=== PATIENT | female | born 1955 | race Caucasian/White ===

== ENCOUNTER 2016-11-18 19:54 | Emergency (ER) | payer BC | END 2016-11-18 22:38 | disposition home or self-care (01) | DX: S09.90XA Unspecified injury of head, initial encounter (principal); W01.0XXA Fall on same level from slipping, tripping and stumbling without subsequent striking against object, initial encounter; Y92.019 Unspecified place in single-family (private) house as the place of occurrence of the external cause; F10.129 Alcohol abuse with intoxication, unspecified ==

== ENCOUNTER 2018-05-05 02:22 | Emergency (ER) | payer SELFPAY ==
[2018-05-05] MEDS ORDERED: LIDOCAINE-EPINEPH-TETRACAINE 3 ML SYRINGE TOP STA (02:58)
[2018-05-05] MEDS ORDERED: BUFFERED LIDOCAINE 10 ML SYRINGE SUBQ STA (02:58)
--- NOTE | 2018-05-05 02:59 | ED Physician Documentation ---
PD HPI HEAD INJURY - Stated complaint Stated Complaint: HEAD LACERATION - Chief complaint Chief Complaint: Laceration - History obtained from History obtained from: Patient, Family - History of Present Illness Mechanism of head injury: Fell, Blow, Laceration Where head injury occurred: Home Timing - onset: Today Severity Comments: moderate Location of injury: Back Quality of pain: Throbbing, Aching Associated symptoms: Other (Intoxication) Symptoms improve with: Nothing Contributing factors: Intoxicated. No: Anticoagulated Similar symptoms before: Has not had sx before Recently seen: Not recently seen - Additional information Additional information: 62-year-old female presents the emergency department for evaluation of head injury which occurred just prior to arrival. The patient fell striking the back of her head with laceration. No reports of numbness tingling or motor weakness or injury to her torso or upper or lower extremities Review of Systems Constitutional: denies: Fever, Chills Eyes: denies: Loss of vision Ears: denies: Ear pain Cardiac: denies: Chest pain / pressure GI: denies: Abdominal Pain Skin: reports: Laceration (s) Neurologic: reports: Head injury PD PAST MEDICAL HISTORY - Past Medical History Past Medical History: No - Past Surgical History Past Surgical History: No - Present Medications Home Medications: Ambulatory Orders Medication Instructions Recorded Confirmed Cetirizine [ZyrTEC] 10 mg PO PRN PRN 11/18/16 11/18/16 - Allergies Allergies/Adverse Reactions: Allergies Allergy/AdvReac Type Severity Reaction Status Date / Time No Known Drug Allergies Allergy Verified 05/05/18 02:30 - Social History Does the pt smoke?: No Smoking Status: Never smoker Does the pt drink ETOH?: Yes Does the pt have substance abuse?: No - Immunizations Immunizations are current?: Yes PD ED PE NORMAL - General General: Alert and oriented X 3, No acute distress - HEENT HEENT: PERRL, EOMI, Ears normal. No: Atraumatic - Neck Neck: Other (The Nexus criteria is not applicable to this patient secondary to intoxication.) - Derm Derm: Normal color, Other (1 cm scalp laceration) - Extremities Extremities: No deformity, Normal ROM s pain - Neuro Neuro: Alert and oriented X 3, No motor deficit, Normal speech - Psych Psych: Normal affect Results - Vitals Vitals: Vital Signs - 24 hr 05/05/18 02:24 Temperature 36.3 C L Heart Rate 89 Respiratory 18 Rate Blood Pressure 105/75 O2 Saturation 95 Oxygen O2 Source Room air - Rads (name of study) CT head/neck Radiology: Final report received (IMPRESSION: No CT evidence of acute intracranial process.IMPRESSION: No evidence of cervical spine fracture. ) Procedures - Laceration (location) Scalp Wound type: Linear Neurovascular status: Vascular intact Anesthesia: LET, Lidocaine 1% Wound Preparation: Betadine, Irrigated copiously NS Skin layer closure: Chang, Sutures - enter # (3) Other: Patient tolerated well, No complications, Neurovascular intact, Tetanus UTD Complexity: Simple PD MEDICAL DECISION MAKING - ED course ED course: The patient has no evidence of skull fracture or intracranial hemorrhage and a CT scan was done to rule out cervical spine fracture since the patient was intoxicated. The patient's laceration was closed using chang. The patient appears appropriate for discharge and outpatient management. I discussed w arning signs and recommended returning to the emergency department immediately for worsening or any concerns. - Sepsis Event Vital Signs: Vital Signs - 24 hr 05/05/18 02:24 Temperature 36.3 C L Heart Rate 89 Respiratory 18 Rate Blood Pressure 105/75 O2 Saturation 95 Oxygen O2 Source Room air Departure - Departure Disposition: 01 Home, Self Care Clinical Impression: Closed head injury Qualifiers: Encounter type: initial encounter Qualified Code(s): S09.90XA - Unspecified injury of head, initial encounter Scalp laceration Qualifiers: Encounter type: initial encounter Qualified Code(s): S01.01XA - Laceration with out foreign body of scalp, initial encounter Fall Qualifiers: Encounter type: initial encounter Qualified Code(s): W19.XXXA - Unspecified fall, initial encounter Condition: Good Instructions: ED Head Injury Closed Ch, ED Laceration All Comments: Please have your Chang removed in 7-10 days. Please return to the emergency department immediately for any worsening or any concerns.
--- NOTE | 2018-05-05 03:50 | CT Report ---
Reason: head injury, +ETOH Procedure Date: 05/05/2018 Accession Number: [id number] / [id number] Procedure: CT - Head W/O CPT Code: FULL RESULT: EXAM: CT HEAD EXAM DATE: 05/05/2018 03:27 AM. CLINICAL HISTORY: Head injury, +ETOH. COMPARISON: Head CT 11/18/2016. TECHNIQUE: Multiaxial CT images were obtained from the foramen magnum to the vertex. Reformats: Coronal. IV contrast: None. In accordance with CT protocol optimization, one or more of the following dose reduction techniques were utilized for this exam: automated exposure control, adjustment of mA and/or KV based on patient size, or use of iterative reconstructive technique. FINDINGS: Parenchyma: No intraparenchymal hemorrhage. No evidence of mass, midline shift, or CT findings of infarction. There are areas of low density involving white matter bilateral cerebral hemispheres. Extraaxial Spaces: Mild prominence of sulci and ventricles. No mass-effect. No midline shift. No subdural or epidural collections identified. Ventricles: Normal in size and position. Sinuses and Orbits: Imaged paranasal sinuses, orbits, and mastoids show no significant abnormality. Bones: No evidence of fracture or calvarial defect. Other: There is a left occipital scalp hematoma.. IMPRESSION: No CT evidence of acute intracranial process. RADIA
--- NOTE | 2018-05-05 03:57 | CT Report ---
Reason: head injury, +ETOH Procedure Date: 05/05/2018 Accession Number: [id number] / [id number] Procedure: CT - Cervical Spine W/O CPT Code: FULL RESULT: EXAM: CT CERVICAL SPINE WITHOUT CONTRAST DATE: 05/05/2018 03:27 AM. HISTORY: Head injury, +ETOH. COMPARISONS: None. TECHNIQUE: Thin-section axial images were acquired of the cervical spine without contrast. Post-processing: Coronal and sagittal reformats. Other: None. In accordance with CT protocol optimization, one or more of the following dose reduction techniques were utilized for this exam: automated exposure control, adjustment of mA and/or KV based on patient size, or use of iterative reconstructive technique. FINDINGS: Alignment: No scoliosis or spondylolisthesis. Bones: No fracture or bone lesion. Interspace Levels/Facets: C1-C2: Unremarkable. C2-C3: There is mild left facet hypertrophy. C3-C4: There is left facet hypertrophy and fusion. C4-C5: Mild bilateral facet DJD. C5-C6: Disk height loss. Mild endplate osteophytosis. Mild right facet hypertrophy. Mild left neural foraminal narrowing. C6-C7: Disk height loss and endplate degenerative changes. Uncovertebral osteophytosis with moderate left neural foraminal narrowing. C7-T1: Unremarkable. Musculature: Normal. No fatty atrophy. Other: The paravertebral and prevertebral soft tissues are unremarkable. The lung apices are clear. IMPRESSION: No evidence of cervical spine fracture. RADIA
[2018-05-05 04:17] VITALS: BP 115/64
== END 2018-05-05 04:17 | disposition home or self-care (01) ==
LOC: ED 02:22
DX: S01.01XA Laceration without foreign body of scalp, initial encounter (principal); W19.XXXA Unspecified fall, initial encounter; W22.8XXA Striking against or struck by other objects, initial encounter; Y92.009 Unspecified place in unspecified non-institutional (private) residence as the place of occurrence of the external cause
CPT/HCPCS: 12001; 70450; 72125; 99282; 99283

== ENCOUNTER 2020-06-30 20:26 | Outpatient (CLI) | payer BC | END 2020-06-30 20:27 | disposition critical access hospital (66) | LOC: EMS 20:26 | PROVIDERS: ATTEND Surgery | DX: S89.92XA Unspecified injury of left lower leg, initial encounter (principal); W10.9XXA Fall (on) (from) unspecified stairs and steps, initial encounter; Y93.89 Activity, other specified; Y92.009 Unspecified place in unspecified non-institutional (private) residence as the place of occurrence of the external cause | CPT/HCPCS: A0425; A0429 ==

== ENCOUNTER 2020-06-30 20:50 | Emergency (ER) | payer BC ==
--- NOTE | 2020-06-30 21:02 | ED Physician Documentation ---
History of Present Illness - Stated complaint Stated Complaint: GLF, LEFT KNEE INJURY - History obtained from History obtained from: Patient - Additonal information Additional information: pt presented w/ left knee pain after a fall. she was going up the stairs and tripped and landed directly on the edge of the concrete stair onto left patella. She felt the patella at that time and felt it was in two pieces. minimal pain at rest presently. no other injuries during the fall. PD PAST MEDICAL HISTORY - Past Surgical History Past Surgical History: No - Present Medications Home Medications: Ambulatory Orders Medication Instructions Recorded Confirmed Cetirizine [ZyrTEC] 10 mg PO PRN PRN 11/18/16 11/18/16 - Allergies Allergies/Adverse Reactions: Allergies Allergy/AdvReac Type Severity Reaction Status Date / Time No Known Drug Allergies Allergy Verified 06/30/20 20:59 - Social History Does the pt smoke?: No Smoking Status: Never smoker Does the pt drink ETOH?: Yes Does the pt have substance abuse?: No - Immunizations Immunizations are current?: Yes PD ED PE NORMAL - Vitals Vital signs reviewed: Yes - General General: Alert and oriented X 3, No acute distress, Well developed/nourished - HEENT HEENT: Atraumatic, Moist mucous membranes - Neck Neck: Supple, no meningeal sign, No bony TTP - Cardiac Cardiac: RRR, No murmur, No gallop, No rub, Strong equal pulses - Respiratory Respiratory: No respiratory distress, Clear bilaterally - Abdomen Abdomen: Normal bowel sounds, Soft, Non tender, Non distended - Derm Derm: Normal color, Warm and dry, No rash, Other (Patella contusion but skin intact) - Extremities Extremities: Other (left knee contusion and generalized swelling, tender, palpable fracture of patella. no distal femur or tibial ttp) - Neuro Neuro: Alert and oriented X 3 Eye Opening: Spontaneous Motor: Obeys Commands Verbal: Oriented GCS Score: 15 - Psych Psych: Normal mood, Normal affect - Free text exam Free text exam: 2+ pedal pulses bilat with brisk cap refill, normal sensation distal to the injury. Results - Vitals Vitals: Vital Signs - 24 hr 06/30/20 06/30/20 06/30/20 20:57 21:14 21:17 Temperature 37.5 C 37.5 C Heart Rate 99 99 76 Respiratory 8 L 18 Rate Blood Pressure 154/90 H 154/90 H 159/68 H O2 Saturation 98 98 98 Oxygen O2 Source Room air PD MEDICAL DECISION MAKING - ED course Complexity details: reviewed results, d/w patient, d/w [facility] consultant ED course: Pt presented after a fall onto the left knee. She sustained a fracture of the patella with 1.7cm of space between the fracture fragments. We placed her in a long leg knee immobilizer. I spoke w/ Dr. Villegas who has kindly agreed to see pt at 0930am tomorrow in his clinic to determine next steps. Pt advised to remain NPO after midnight for possible surgical repair tomorrow. She was advised to remain NWB and was provided crutches. She declined pain meds here but was sent home with #4 tablets for prn use until she follows up with ortho. Departure - Departure Disposition: 01 Home, Self Care Clinical Impression: Patella fracture Qualifiers: Encounter type: initial encounter Fracture type: closed Fracture morphology: unspecified fracture morphology Fracture alignment: displaced Laterality: left Qualified Code(s): S82.002A - Unspecified fracture of left patella, initial encounter for closed fracture Condition: Good Instructions: ED Fx Patella Follow-Up: Vidal Villegas MD [Provider Admit Priv/Credential] - Comments: Please follow up with Dr. Villegas (Orthopedic surgeon) tomorrow morning at 0930am. Please stay NPO (nothing by mouth) after midnight in the event that he can do a surgical repair tomorrow. Please remain non-weight bearing and use the knee immobilizer at all times until you are seen by the orthopedic surgeon. The address to Dr. Villegas's office is: [address] [place] [id number]
[2020-06-30 21:18] VITALS: BP 159/68
[2020-06-30] MEDS ORDERED: HYDROcod/ACET 5/325 Prepack 4 PO STA (22:09)
--- NOTE | 2020-07-01 07:27 | XRAY Report ---
PROCEDURE: Knee 3 View LT INDICATIONS: concern for patella fx TECHNIQUE: 3 views of the left knee(s) were acquired. COMPARISON: None. FINDINGS: Bones: Horizontally oriented fracture through the mid aspect of the patella. There is approximately 1 .7 cm distraction of the superior and inferior fracture fragments. No suspicious bony lesions. Soft tissues: Small joint effusion. No suspicious soft tissue calcifications. Anterior patellar soft tissue swelling. IMPRESSION: Distracted patella fracture. Reviewed by: Naomi Glez MD, PhD on 07/01/2020 7:26 AM PST Approved by: Naomi Glez MD, PhD on 07/01/2020 7:26 AM PST Station ID: [id number]
== END 2020-06-30 22:25 | disposition home or self-care (01) ==
LOC: EDUNIT# → EDBD → ED 20:50
DX: S82.092A Other fracture of left patella, initial encounter for closed fracture (principal); S80.02XA Contusion of left knee, initial encounter; W10.9XXA Fall (on) (from) unspecified stairs and steps, initial encounter; Y93.01 Activity, walking, marching and hiking
CPT/HCPCS: 99281; 99283

== ENCOUNTER 2020-07-01 11:14 | Day surgery (SDC) | payer BC ==
[2020-07-01] MEDS ORDERED: ACETAMINOPHEN 1,000 MG/100 ML 100 ML IV ONE ×2 (12:59→14:37)
[2020-07-01] MEDS ORDERED: CEFAZOLIN SODIUM IN 0.9 % NACL 0 GM/0 ML BAG IV ONE (13:00)
[2020-07-01] MEDS ORDERED: CELECOXIB 100 MG CAPSULE PO ONE (13:00)
[2020-07-01] MEDS ORDERED: GABAPENTIN 400 MG CAPSULE ONE (13:00)
[2020-07-01] MEDS ORDERED: CEFAZOLIN SODIUM IN 0.9 % NACL 2 GM/100 ML BAG IV ONE (13:06)
[2020-07-01] MEDS ORDERED: LACTATED RINGERS 1,000 ML IV ONE ×3 (14:19→15:52)
[2020-07-01] MEDS ORDERED: BUPIVACAINE 0.5% PF 30 ML VIAL ONE (14:22)
[2020-07-01] MEDS ORDERED: fentaNYL 100 MCG/2 ML VIAL IVP ONE (14:37)
[2020-07-01] MEDS ORDERED: ceFAZolin 2 GM in SODIUM CHLORIDE 0.9% 100ML 100 ML IV ONE (14:37)
[2020-07-01] MEDS ORDERED: PROPOFOL 200 MG/20 ML VIAL IVP ONE (14:37)
[2020-07-01] MEDS ORDERED: DEXAMETHASONE 4 MG/ML VIAL IVP ONE ×2 (14:37)
[2020-07-01] MEDS ORDERED: MIDAZOLAM 2 MG/2 ML VIAL IVP ONE (14:37)
[2020-07-01] MEDS ORDERED: LIDOCAINE-MPF 2% 5 ML VIAL IM ONE (14:37)
[2020-07-01] MEDS ORDERED: ROPIVACAINE 0.5% PF 20 ML VIAL EPI ONE (14:37)
[2020-07-01] MEDS ORDERED: ONDANSETRON 4 MG/2 ML VIAL IVP ONE (14:37)
[2020-07-01] MEDS ORDERED: GLYCOPYRROLATE 1 MG/5 ML VIAL IVP ONE (14:37)
[2020-07-01] MEDS ORDERED: MORPHINE 2 MG/ML CARPUJECT IVP PRN (14:39)
[2020-07-01] MEDS ORDERED: METOCLOPRAMIDE 10 MG/2 ML VIAL IVP PRN (14:39)
[2020-07-01] MEDS ORDERED: fentaNYL 100 MCG/2 ML VIAL IVP PRN (14:39)
[2020-07-01] MEDS ORDERED: ePHEDrine 50 MG/ML VIAL IVP PRN (14:39)
[2020-07-01] MEDS ORDERED: NALOXONE 0.4 MG/ML VIAL IVP PRN (14:39)
[2020-07-01] MEDS ORDERED: ATROPINE ABBOJECT 1 MG/10 ML SYRINGE IVP PRN (14:39)
[2020-07-01] MEDS ORDERED: ONDANSETRON 4 MG/2 ML VIAL IVP PRN ×2 (14:39→15:40)
[2020-07-01] MEDS ORDERED: HYDROmorphone 0.5 MG/0.5 ML SYRINGE IVP PRN (14:39)
--- NOTE | 2020-07-01 14:39 | ANESTHESIA ---
Pre-Anesthesia VS, & Labs - Diagnosis left petallar fracture - Procedure ORIF left Petella Vital Signs: Temp Pulse Resp BP Pulse Ox 37.2 C 87 16 142/57 H 100 07/01/20 14:04 07/01/20 14:04 07/01/20 14:04 07/01/20 14:04 07/01/20 14:04 Height: 5 ft 3 in Weight (kg): 61.2 kg Body Mass Index: 23.8 BMI Classification: Healthy weight - NPO >8 hours - Is Patient ?: No Home Medications and Allergies Cetirizine [ZyrTEC] 10 mg PO PRN PRN 11/18/16 Allergies/Adverse Reactions: Allergies Allergy/AdvReac Type Severity Reaction Status Date / Time No Known Drug Allergies Allergy Verified 06/30/20 20:59 Anes History & Medical History - Anesthetic History Anesthesia Complications: reports: No previous complications - Medical History Cardiovascular: reports: None Pulmonary: reports: None, Other Gastrointestinal: reports: None Urinary: reports: None Musculoskeletal: reports: None Endocrine/Autoimmune: reports: None Skin: reports: None Smoking Status: Never smoker History of Cancer?: No - Surgical History General: Colonoscopy Results - EKG Results EKG Comparison: Normal EKG Exam General: Alert Dental: WNL Mouth Opening: Greater than 4 Fingerbreadths Neck Mobility: Normal Mallampati classification: I Thyromental Distance: greater than 6 cm Respiratory: Lungs clear Cardiovascular: Regular rate Mental/Cognitive Status: Alert/Oriented X3 Plan Anesthesia Type: General Consent for Procedure(s) Verified and Reviewed: Yes Code Status: Attempt Resuscitation ASA classification: 1-Healthy patient Is this case an emergency?: Yes
[2020-07-01] MEDS ORDERED: LACTATED RINGERS 1,000 ML IV SCH (15:00)
[2020-07-01] MEDS ORDERED: BUPIVACAINE 0.5% PF 30 ML VIAL INFIL ONE (15:07)
[2020-07-01] MEDS ORDERED: oxyCODONE 5 MG TABLET PO PRN (15:40)
[2020-07-01] MEDS ORDERED: HYDROmorphone 0.5 MG/0.5 ML SYRINGE ONE (15:59)
--- NOTE | 2020-07-01 16:20 | XRAY Report ---
PROCEDURE: OR C-Arm Procedure INDICATIONS: FX PATELLA TECHNIQUE: Intraoperative evaluation at termination of the operative procedure of patellar fracture f ixation. COMPARISON: Knee plain films 06/30/2020 FINDINGS: Normal alignment has been established by placement of 2 cannulated cortical screws which are vertical ly oriented both medially and laterally with interlocking cerclage wire laced diagonally through thes e 2 screws bringing the patellar margins into virtual anatomic alignment for healing. IMPRESSION: Virtual anatomic alignment for healing established. Reviewed by: Marcial Garces MD on 07/01/2020 4:19 PM PST Approved by: Marcial Garces MD on 07/01/2020 4:19 PM PST Station ID: [id number]
--- NOTE | 2020-07-01 16:37 | XRAY Report ---
PROCEDURE: Knee 2 View LT INDICATIONS: postop TECHNIQUE: 2 views of the left knee(s) were acquired. COMPARISON: 06/30/2020. FINDINGS: Bones: Postsurgical changes compatible with ORIF of patellar fracture. There is anatomic alignment of the fracture following ORIF. Soft tissues: No joint effusion. No suspicious soft tissue calcifications. IMPRESSION: Anatomic alignment of patellar fracture following ORIF. Reviewed by: Naomi Glez MD, PhD on 07/01/2020 4:36 PM PST Approved by: Naomi Glez MD, PhD on 07/01/2020 4:36 PM PST Station ID: [id number]
--- NOTE | 2020-07-01 16:47 | ANESTHESIA PROCEDURE NOTE ---
Diagnosis: left patellar fracture. S/P ORIF Procedure: Left femoral nerve block Consent for Procedure(s) Verified and Reviewed: No Height and Weight: Height 5 ft 3 in Weight (kg) 61.2 kg Body Mass Index 23.8 Vital Signs: Temp Pulse Resp BP Pulse Ox 36.9 C 85 15 132/78 H 98 07/01/20 16:30 07/01/20 16:30 07/01/20 16:30 07/01/20 16:30 07/01/20 16:30 Allergies No Known Drug Allergies Allergy (Verified 06/30/20 20:59) Requesting Provider: Bakari Location: Left Femoral Nerve ASA classification: 1-Healthy patient Anes. Monitoring and Equipment: Non-invasive BP, Pulse oximetery Anes. Procedure Start Time: 15:59 Anes. Procedure Stop Time: 16:04 Procedure Notes: Called to recovery room by surgeon to assess patient with poor pain control post ORIF left patellar fracture. Surgeon requesting a femoral nerve block for post op pain control. Discussed risk/benefits of FNB with patient and she agreed to proceed. No written consent obtained as patient in in the immediate post operative period. The patient's left groin was prepped with chlorohexadine and the femoral nerve was identified under ultrasound. A 22G stimiplex needle was inserted and directed towards nerve sheath. A total of 25ml of 0.5% ropivicaine with 4mg of decadron was injected with adequate spread noted. Image was obtained and saved. Patient tolerated well. Full evaluation pending.
[2020-07-01 17:21] VITALS: BP 135/73
--- NOTE | 2020-07-01 17:21 | ANESTHESIA POST OP EVALUATION ---
Anesthesia Post Eval - Post Anesthesia Eval Vitals: Last Vital Signs Temp 36.8 C 07/01/20 17:00 Pulse 84 07/01/20 17:00 Resp 18 07/01/20 17:00 BP 135/73 H 07/01/20 17:00 Pulse Ox 98 07/01/20 17:00 CV Function Including HR & BP: positive: Stable Pain Control: positive: Satisfactory Nausea & Vomiting: positive: Negative Mental Status: positive: Patient Participates Respiratory Status: Airway Patent Hydration Status: Satisfactory Anesthesia Complications: positive: None
--- NOTE | 2020-07-06 10:27 | OPERATIVE REPORT ---
Operative Report - General Procedure Date: 07/01/20 Planned Procedure: ORIF left patella Pre-Op Diagnosis: left patella fracture Procedure Performed: same Post Op Diagnosis: same - Procedure Note Primary Surgeon: imani Anesthesia Technique: General LMA Estimated Blood Loss (mL): 50 Complications: none - Other Other Information/Narrative: Patient was brought to the operating room and a general anesthetic was administered. Placed in supine position of the turkey around the thigh and all bony prominences well-padded. Leg was then prepped and draped in usual sterile fashion. Timeout was completed, verifying patient procedure and site. Anterior midline incision was then made over the knee. Dissection carried out down to the patella. Fracture was visualized and cleared of any hematoma. Wound the knee joint itself were thoroughly irrigated with normal salineTenaculum was then used to reduce the fracture and it was provisionally fixed with 2 guidewires. Confirmed on fluoroscopy. Guidewires were then measured and the drill for the 4.0 mm cannulated screw set was passed over the guidewires. 2 x 4.0 mm cannulated screws were then fully seated by hand. 18-gauge chest cerclage wire was then passed through the screws in [id number] fashion. Wire was tightened and cut. Knot was buried in soft tissues.Position and reduction was confirmed on fluoroscopy. Wound was then closed in layers with 2 OV lock, 3 OV lock and Dermabond for skin. Sterile dressings and applied followed by a hinged knee brace locked in extension.Patient was then taken to the recovery room in stable condition with no intraoperative complications. Postoperative plan: Discharge home later today. Check x-ray in recovery. Weightbearing as tolerated with the brace locked in extension. Can begin range of motion exercises with the knee. Outpatient physical therapy. Follow-up in 10-14 days for wound check and at 6 weeks with radiographs of the knee. Aspirin 81 mg twice daily for DVT prophylaxis
== END 2020-07-01 11:15 | disposition home or self-care (01) ==
LOC: SDS 11:14
PROVIDERS: ATTEND Orthopaedic Surgery
DX: S82.032A Displaced transverse fracture of left patella, initial encounter for closed fracture (principal); Z01.812 Encounter for preprocedural laboratory examination; Z20.828 Contact with and (suspected) exposure to other viral communicable diseases
CPT/HCPCS: 0202U; 27524; 36415; 73560; 80048; 85025; 93005; A9270; C1713; J0131; J1170; J2795; J7120

== ENCOUNTER 2020-07-01 11:55 | Outpatient (CLI) | payer BC ==
[2020-07-01 12:48] LABS: BASOPHILS % (AUTO) 0.3 %; HGB - HEMOGLOBIN 12.4 g/dL (12.0-16.0); LYMPHOCYTES # (AUTO) 1.6 10^3/uL (1.5-3.5); LYMPHOCYTES % (AUTO) 22.1 %; MEAN CORPUSCULAR HEMOGLOBIN 34.8 pg (27.0-31.0); MEAN CORPUSCULAR HGB CONC 33.3 g/dL (32.0-36.0); MEAN CORPUSCULAR VOLUME 104.5 fL (81.0-99.0); MEAN PLATELET VOLUME 11.8 fL (7.9-10.8); MONOCYTES # (AUTO) 0.4 10^3/uL (0.0-1.0); MONOCYTES % (AUTO) 6.1 %; NEUTROPHILS # (AUTO) 5.1 10^3/uL (1.5-6.6); NEUTROPHILS % (AUTO) 71.4 %; PLT - PLATELET COUNT 230 10^3/uL (130-450); RED BLOOD COUNT 3.56 10^6/uL (4.20-5.40); RED CELL DISTRIBUTION WIDTH 12.4 % (12.0-15.0); WHITE BLOOD COUNT 7.1 x10^3/uL (4.8-10.8)
[2020-07-01 12:55] LABS: CALCIUM 9.7 mg/dL (8.5-10.3); CREATININE 0.7 mg/dL (0.4-1.0)
[2020-07-01 13:33] LABS: C. PNEUMONIAE- RESP PCR PANEL NOT DETECTED
== END 2020-07-01 11:56 | disposition home or self-care (01) ==
LOC: LAB 11:55
PROVIDERS: ATTEND Orthopaedic Surgery
DX: Z01.812 Encounter for preprocedural laboratory examination (principal); S82.032A Displaced transverse fracture of left patella, initial encounter for closed fracture
CPT/HCPCS: 0202U; 36415; 80048; 85025

== ENCOUNTER 2020-08-11 17:37 | Outpatient (CLI) | payer BC ==
--- NOTE | 2020-08-11 16:11 | XRAY Report ---
PROCEDURE: Knee 2 View LT INDICATIONS: POST-OP CARE TECHNIQUE: 2 views of the left knee(s) were acquired. COMPARISON: 07/01/2020 FINDINGS: Bones: Again noted is prior internal fixation of patella. Right knee alignment is not significantly c hanged from previous study. No gross hardware loosening or failure. No new fracture or dislocation. N o suspicious bony lesions. Soft tissues: No joint effusion. No suspicious soft tissue calcifications. IMPRESSION: Stable left knee alignment. No gross hardware complication. No new fracture or dislocati on. Reviewed by: Tarik Underwood MD on 08/11/2020 4:09 PM PST Approved by: Tarik Underwood MD on 08/11/2020 4:09 PM PST Station ID: [id number]
== END 2020-08-11 23:59 | disposition home or self-care (01) ==
LOC: DI.N 17:37
PROVIDERS: ATTEND Physician Assistant
DX: Z48.89 Encounter for other specified surgical aftercare (principal)

== ENCOUNTER 2020-11-06 13:12 | Outpatient (CLI) | payer BC ==
--- NOTE | 2020-11-09 12:05 | Mammography Report ---
BILATERAL DIGITAL SCREENING MAMMOGRAM 3D/2D WITH EXAGGERATED CC: 11/06/2020 CLINICAL: Routine screening. No prior exams were available for comparison. The tissue of both breasts is predominantly fatty. Reporting delay due to awaiting outside images for comparison. No significant masses, calcifications, or other findings are seen in either breast. IMPRESSION: NEGATIVE There is no mammographic evidence of malignancy. A 1 year screening mammogram is recommended. This exam was interpreted at Station ID: [id number]. NOTE: For mammograms, a report in lay terms will be sent to the patient. Approximately 15% of breast malignancies will not be visualized mammographically. In the management of a palpable breast mass, a negative mammogram must not discourage biopsy of a clinically suspicious lesion. Electronically Signed By: Dale Katz acr/penrad:11/08/2020 15:13:24 ACR BI-RADS Category 1: Negative 3341F PARENCHYMAL PATTERN: (F) - The breast(s) demonstrate(s) diffuse fatty replacement. BI-RADS CATEGORY: (1) - 1 RECOMMENDATION: (ANNUAL) - Recommend routine annual screening mammography. [id number] 1 year screening LATERALITY: (B)
== END 2020-11-06 13:13 | disposition home or self-care (01) ==
LOC: DI.S 13:12
PROVIDERS: ATTEND Registered Nurse
DX: Z12.31 Encounter for screening mammogram for malignant neoplasm of breast (principal)